=== PATIENT | female | born 1985 | race Caucasian/White ===

== ENCOUNTER 2022-08-08 13:18 | Inpatient (IN) | payer BC ==
[2022-08-08] MEDS ORDERED: Famotidine/PF 20 mg/2ml Vial SLOW IVP PRN (13:48)
[2022-08-08] MEDS ORDERED: Bicitra 30 ML UDCUP PO PRN (13:48)
[2022-08-08] MEDS ORDERED: Promethazine HCl 25 MG/ML VIAL IM PRN ×3 (13:48→18:55)
[2022-08-08] MEDS ORDERED: hydrALAZINE 20 MG/ML VIAL SLOW IVP PRN ×2 (13:48→15:34)
[2022-08-08] MEDS ORDERED: Ondansetron PF 4 MG/2 ML Vial IVP PRN ×3 (13:48→18:55)
[2022-08-08] MEDS ORDERED: Lactated Ringer's 1,000 ML IV SCH (14:00)
[2022-08-08] MEDS ORDERED: CEFAZOLIN 2 GM in Sodium Chloride 0.9% 100 ML IVPB SCH (14:00)
[2022-08-08] MEDS ORDERED: Lorazepam 2 MG/ML VIAL SLOW IVP PRN (14:01)
[2022-08-08] MEDS ORDERED: Calcium Gluc 4.6 MEQ/10 ML (100 MG/ML) SLOW IVP PRN (14:01)
[2022-08-08] MEDS ORDERED: Magnesium Sulfate 20 gm/500 ml 20 GM/500 ML BAG IVPB SCH (14:15)
[2022-08-08] MEDS ORDERED: Oxytocin 10 UNITS/ML VIAL ONE (14:37)
[2022-08-08] MEDS ORDERED: Lidocaine 1% PF 5 ML VIAL ONE (14:37)
[2022-08-08] MEDS ORDERED: Ondansetron PF 4 MG/2 ML Vial ONE (14:37)
[2022-08-08] MEDS ORDERED: Dexamethasone 4 mg/ml Vial ONE (14:37)
[2022-08-08 15:11] LABS: Hemoglobin 12.1 g/dL (12.0-15.5); Mean Corpuscular HGB CONC 33.1 g/dL (32.0-36.0); Mean Corpuscular Hemoglobin 28.5 pg (27.0-33.0); Mean Corpuscular Volume 86.3 fl (81.6-98.3); Mean Platelet Volume 11.2 fl (7.4-10.4); Platelet Count 345 10x3/uL (150-450); RBC Distribution Width 13.6 % (11.5-14.5); Red Blood Cell (RBC) Count 4.24 10x6/uL (3.90-5.03); White Blood Cell (WBC) Count 10.7 10x3/uL (3.5-10.5)
[2022-08-08 15:21] LABS: ALT (SGPT) 10 U/L (8-55); AST (SGOT) 18 U/L (5-34); Albumin 3.5 g/dL (3.5-5.0); Alkaline Phosphatase 171 U/L (40-110); Anion Gap 15 mmol/L (10-20); BUN (Urea Nitrogen) 10 mg/dL (7.0-18.7); Bilirubin, Total 0.6 mg/dL (0.2-1.2); Calc. Creatinine Clearance 0 mL/min (70-130); Calcium 8.8 mg/dL (7.8-10.44); Carbon Dioxide 21 mmol/L (22-29); Chloride 103 mmol/L (98-107); Estimated GFR 114; Globulin 2.8 g/dL (2.4-3.5); Glucose 62 mg/dL (70-105); Potassium 4.5 mmol/L (3.5-5.1); Protein, Total 6.3 g/dL (6.0-8.3); Sodium 134 mmol/L (136-145)
[2022-08-08] MEDS ORDERED: Boostrix 0.5 ML (Tdap) VIAL (>/=7 yrs of age) IM ONE (15:34)
[2022-08-08] MEDS ORDERED: Bisacodyl 10 MG SUPP PR PRN (15:34)
[2022-08-08] MEDS ORDERED: diphenhydrAMINE 25 MG CAP PO PRN (15:34)
[2022-08-08] MEDS ORDERED: Simethicone Chewable 80 MG TAB PO PRN (15:34)
[2022-08-08] MEDS ORDERED: Lanolin Ointment 7 GM TUBE TOP PRN (15:34)
[2022-08-08] MEDS ORDERED: Morphine PF 10 MG/10 ML VIAL ONE (15:37)
[2022-08-08 15:41] LABS: HBSAg Index 0.19 S/CO (0-0.99); Hep B Surf Ag Non-Reactive S/CO (NonReactive); Syphilis Antibody Nonreactive (Nonreactive); Syphilis Antibody Index 0.04 S/CO (<1.00 Non-Reactive)
[2022-08-08 18:48] VITALS: BMI 44.6
[2022-08-08] MEDS ORDERED: diphenhydrAMINE 50 MG/ML VIAL IVP PRN (18:55)
[2022-08-08] MEDS ORDERED: Promethazine HCl 25 MG SUPP PR PRN (18:55)
[2022-08-08] MEDS ORDERED: Ketorolac Tromethamine 30 MG/ML VIAL IVP PRN (18:55)
[2022-08-08] MEDS ORDERED: Moisturizing Cream (Eucerin) 113 GM JAR TOP PRN (18:55)
[2022-08-08] MEDS ORDERED: Naloxone HCl 0.4 mg/ml Vial IVP PRN ×2 (18:55)
[2022-08-08] MEDS ORDERED: Naloxone HCl 0.4 mg/ml Vial IV PRN (18:55)
[2022-08-08] MEDS ORDERED: Communication Order-Pharmacy FS SCH (19:00)
[2022-08-08 20:13] LABS: SARS-CoV-2 NAA Rapid Test Not Detected (NotDetected)
[2022-08-08] MEDS ORDERED: Docusate 100 MG CAP PO SCH (21:00)
[2022-08-08] MEDS ORDERED: Ferrous Sulfate 325 MG TAB PO SCH (21:00)
[2022-08-08] MEDS ORDERED: Ibuprofen 800 MG TAB PO SCH (22:00)
[2022-08-09 05:26] LABS: Hemoglobin 9.3 g/dL (12.0-15.5); Mean Corpuscular HGB CONC 32.9 g/dL (32.0-36.0); Mean Corpuscular Hemoglobin 28.9 pg (27.0-33.0); Mean Corpuscular Volume 87.9 fl (81.6-98.3); Platelet Count 283 10x3/uL (150-450); RBC Distribution Width 14.1 % (11.5-14.5); Red Blood Cell (RBC) Count 3.22 10x6/uL (3.90-5.03); White Blood Cell (WBC) Count 16.2 10x3/uL (3.5-10.5)
[2022-08-09] MEDS ORDERED: Acetaminophen 325 MG TAB PO PRN (08:53)
[2022-08-09] MEDS ORDERED: diphenhydrAMINE 25 MG CAP PO PRN (08:53)
[2022-08-09] MEDS ORDERED: traMADol HCl 50 MG TAB PO PRN (08:53)
[2022-08-09] MEDS ORDERED: Ondansetron PF 4 MG/2 ML Vial IVP PRN (08:53)
[2022-08-09] MEDS ORDERED: Boostrix 0.5 ML (Tdap) VIAL (>/=7 yrs of age) IM ONE (08:53)
[2022-08-09] MEDS ORDERED: Lanolin Ointment 7 GM TUBE TOP PRN (08:53)
[2022-08-09] MEDS ORDERED: hydrALAZINE 20 MG/ML VIAL SLOW IVP PRN (08:53)
[2022-08-09] MEDS ORDERED: Simethicone Chewable 80 MG TAB PO PRN (08:53)
[2022-08-09] MEDS ORDERED: Bisacodyl 10 MG SUPP PR PRN (08:53)
[2022-08-09] MEDS ORDERED: Prenatal Vitamin 1 TAB PO SCH (09:00)
[2022-08-09] MEDS: Ibuprofen 800 MG TAB PO SCH ×2 (16:18→22:17)
[2022-08-09] MEDS: Docusate 100 MG CAP PO SCH ×2 (16:25→22:00)
[2022-08-09] MEDS: Ferrous Sulfate 325 MG TAB PO SCH ×2 (16:25→22:00)
[2022-08-09] MEDS: Prenatal Vitamin 1 TAB PO SCH (16:26)
[2022-08-10] MEDS: Ibuprofen 800 MG TAB PO SCH ×3 (06:29→22:03)
[2022-08-10] MEDS: Docusate 100 MG CAP PO SCH ×2 (08:34→22:00)
[2022-08-10] MEDS: Ferrous Sulfate 325 MG TAB PO SCH ×2 (08:34→22:00)
[2022-08-10] MEDS: Prenatal Vitamin 1 TAB PO SCH (08:35)
[2022-08-11] MEDS: Ibuprofen 800 MG TAB PO SCH ×2 (05:44→14:11)
[2022-08-11 07:50] VITALS: BP 135/70; TEMP 99
[2022-08-11] MEDS: Ferrous Sulfate 325 MG TAB PO SCH (09:33)
[2022-08-11] MEDS: Prenatal Vitamin 1 TAB PO SCH (09:33)
[2022-08-11] MEDS: Docusate 100 MG CAP PO SCH (09:33)
== END 2022-08-11 15:30 | disposition home or self-care (01) | DRG 788 ==
LOC: CSHLD 13:18 → CSHANTE 08-09 12:15
PROVIDERS: ADMIT Obstetrics & Gynecology; ATTEND Obstetrics & Gynecology
PROC: 10D00Z1 Extraction of Products of Conception, Low, Open Approach (ICD-10-PCS; principal; 2022-08-08)
DX: O14.14 Severe pre-eclampsia complicating childbirth (principal); Z37.0 Single live birth; O32.1XX0 Maternal care for breech presentation, not applicable or unspecified; Z3A.38 38 weeks gestation of pregnancy; Z79.899 Other long term (current) drug therapy; Z90.49 Acquired absence of other specified parts of digestive tract; O99.844 Bariatric surgery status complicating childbirth; Z88.6 Allergy status to analgesic agent; E66.9 Obesity, unspecified; O99.214 Obesity complicating childbirth; O34.03 Maternal care for unspecified congenital malformation of uterus, third trimester; Q51.3 Bicornate uterus; D50.9 Iron deficiency anemia, unspecified; O99.02 Anemia complicating childbirth; Z20.822 Contact with and (suspected) exposure to COVID-19
CPT/HCPCS: 36415; 51702; 80053; 85027; 86780; 86850; 86900; 86901; 87340; J1100; J2274; J2405; J2590; J3475; J7120; U0002